=== PATIENT | male | born 1935 | race Caucasian/White ===

== ENCOUNTER 2016-07-20 09:17 | Day surgery (SDC) ==
[2012-08-12 23:47] VITALS: BMI 38.7
[2016-07-20] MEDS ORDERED: LIDOCAINE 1% 20 ML MDV ID ONE (09:53)
[2016-07-20] MEDS ORDERED: DIPRIVAN 20 ML VIAL IVP ONE (10:55)
[2016-07-20] MEDS ORDERED: VERSED ONE (10:55)
[2016-07-20 12:25] VITALS: BP 149/90; TEMP 99
--- NOTE | 2016-07-21 13:04 | OP ---
INDICATIONS FOR PROCEDURE: 81 year old gentleman presents for colonoscopy. He has a history of chronic constipation. 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 MEDICATIONS: SEE ANESTHESIA NOTES. PROCEDURE: COLONOSCOPY, SNARE POLYPECTOMY. REPORT: The risks, benefits, alternatives and limitations were discussed in detail with the patient. Informed consent was obtained. After adequate sedation was achieved, a digital rectal exam revealed good tone, no masses. The colonoscope was introduced into the rectum and advanced under direct visual guidance to the cecum. The cecum was identified by the appendiceal orifice and IC valve. I then slowly withdrew the scope in circumferential manner and examined the mucosa quite carefully. I looked on the proximal and distal sides of the folds and flexures as best as possible. I sent the retroflex scope in the right colon and left colon increase visualization. The surgical anastomosis was identified in the transverse colon area and the descending area approximately there was a raise 7mm polyp that I removed by snare technique. No other abnormalities were noted. The prep was good to fair, there was liquid and solid stool scattered throughout. I washed and suctioned this off as I advanced the scope then again when I withdrew the scope. The withdraw time is 15 minutes and 24 seconds. The patient tolerated the procedure well with stable vital signs and pulse oximetry throughout. IMPRESSION: 1. Single polyp removed as above 2. Good to fair prep RECOMMENDATIONS: 1. High fiber diet 2. Office visit as needed 3. Await polyp pathology to confirm by results. 4. If he clinically well reconsider repeat colonoscopy examination again in 2 years or sooner if he has any signs or symptoms to indicate otherwise. CC: Dr. Noe PRITCHETT
== END 2016-07-20 12:30 | disposition home or self-care (01) ==
LOC: SURG 09:17
PROVIDERS: ATTEND Internal Medicine Gastroenterology
DX: Z08 Encounter for follow-up examination after completed treatment for malignant neoplasm (principal); Z85.038 Personal history of other malignant neoplasm of large intestine; D12.4 Benign neoplasm of descending colon; K59.09 Other constipation
CPT/HCPCS: 82962